=== PATIENT | female | born 1955 | race Caucasian/White ===

== ENCOUNTER 2020-01-01 12:53 | Outpatient (CLI) | payer MEDICARE, OTHER, SELFPAY ==
[2020-01-01 15:01] LABS: Basophils # 0.1 10^3/uL (0.0-0.1); Basophils % 0.8 %; Eosinophils # 0.3 10^3/uL (0.0-0.8); Eosinophils % 1.8 %; Hematocrit 43.9 % (37.0-47.0); Lymphocytes # 4.6 10^3/uL (0.8-4.8); Lymphocytes % 30.6 %; Mean Corpuscular HGB Conc 31.9 g/dL (30.0-36.0); Mean Corpuscular Hemoglobin 28.8 pg (28.0-34.0); Mean Corpuscular Volume 90.3 fL (81-99); Mean Platelet Volume 9.6 fL (7.4-10.4); Monocytes % 6.4 %; Neutrophils # 8.83 10^3/uL (1.8-7.7); Nucleated Red Blood Cells % 0 %; Platelet Count 321 10^3/cmm (130-400); Red Blood Count 4.86 10^6/uL (4.1-5.3); Red Cell Distribution Width 14.1 % (12.1-15.1)
[2020-01-01 15:30] LABS: Alanine Aminotransferase 18 U/L (0-33); Albumin Level 4.3 g/dL (3.5-5.2); Alkaline Phosphatase 54 IU/L (35-105); Anion Gap 14.3 (5-19); Aspartate Amino Transferase 20 U/L (0-32); Blood Urea Nitrogen 11 mg/dL (8-23); Calcium 9.4 mg/dL (8.5-10.5); Carbon Dioxide 25 mmol/L (22-29); Chloride 103 mmol/L (98-107); Globulin 3.6 g/dL (1.3-4.6); Glucose 105 mg/dL (65-115); Lactate Dehydrogenase 236 U/L (135-214); Osmolality Calculated 286 mOsm/kg (285-295); Potassium 4.3 mmol/L (3.5-5.1); Sodium 138 mmol/L (136-145); Total Bilirubin 0.2 mg/dL (0.15-1.2); Total Protein 7.9 g/dL (6.6-8.7)
[2020-01-01 15:48] LABS: LAB Peripheral Smear Sent for Review
[2020-01-01 16:21] LABS: Erythrocyte Sedimentation Rate 45 mm/hr (0-15)
--- NOTE | 2020-01-05 16:03 | ONC CON_ITS ---
Dr. Kahn New Patient Note Patient: Citlali Bear Unit #: [id number]: 1955 Dicatated By: Benji Kahn M.D.Date of Visit: Jan 01, 2020 Onc MED New Patient/Consult Referring Physician: LUCI FAJARDO Chief Complaint: Leukocytosis. History of Present Illness: This is a 64-year-old woman with a mild leukocytosis. This patient has multiple medical illnesses including asthma/COPD, obstructive sleep apnea, and sarcoidosis. 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 At that time she was found to have a mass within the mesentery of the small bowel and there was associated small bowel perforation. The mass was completely resected along with the involved portion of small intestine, estimated at 30 cm. Pathology showed a 14 x 8 x 6 cm mass within the mesenteric fat. It appeared to be extrinsic to the small bowel wall. It was histologically felt to be consistent with mesenteric fibromatosis. She was followed with surveillance CT scans. I had last seen her in December 2017. At that point she appeared stable clinically. Her CT scans at that time showed fatty infiltration of the liver and fat-containing umbilical and supraumbilical hernias, but there was no evidence of recurrence of the fibromatosis and no other acute findings in the chest, abdomen, or pelvis. In November 2019 she had a follow-up visit with [facility]. At that time she complained of shortness of breath and exhaustion/fatigue. She also reported having low-grade fever. At that time she also indicated that a year earlier she had been to [facility] and that her evaluation there included a PET/CT which showed an area of uptake in the right thyroid, biopsies of which were benign. The PET/CT was apparently otherwise negative. Her laboratory studies included a CBC which showed normal hemoglobin at 13.7 g with hematocrit 41.8%. The white blood cell count was elevated at 18,900. The platelet count was normal at 323,000. She is seen now in regard to the elevated white count. She says it has up and down during the past 4 years. In reviewing her records in [facility], she did have a normal white blood cell count in July 2011. She had 4 additional blood counts between March 2014 and November 2017, all of which showed mild leukocytosis ranging from 12,100-16,100 and with absolute neutrophil counts ranging from 7100-11,000. Her other blood counts had consistently been normal. Her sed rates were normal to slightly elevated. She does have multiple complaints. She says she is extremely fatigued and she has very limited activity. She is able to do some light housework, but slowly. Her ECOG score is 2. Her appetite is not very good. She had lost weight at one time, but overall she has been slowly gaining weight. She does have low-grade fever off and on, up to 100.5 degrees. She has episodes in which she says her head feels like it is on fire. She has not had as much in the way of hot flashes or night sweating. She complains that at times her vision runs together. She says her breathing is terrible. She is short of breath with any activity. She also has some cough and she occasionally brings up nasty, pasty, green or yellow stuff. She does not complain of chest pain. She does have nausea. Her bowels alternate between diarrhea and constipation, and she does have some abdominal pain. She has difficulty voiding. She says her urine tends to just trickle out, and she has to squat to pee . She tends to have incomplete bladder emptying. She says she has a really bad back problem. She also has some more generalized musculoskeletal pain, especially in her arms. She says her arms are weak. She has headaches and she complains that she is off balance. She has numbness/tingling in her hands and feet. She complains that she wants to sleep all the time. She is on CPAP. She has not had a recent titration study. Past Medical History: Her medical history includes allergic rhinitis, anemia, anxiety, asthma/COPD, atrial fibrillation, depression, fibromyalgia, hypothyroidism, mesenteric fibromatosis, obstructive sleep apnea, and sarcoidosis. Past Surgical History: Her surgical/procedural history includes cyst removal off left hand in 2017, Colonoscopy in 2011, exploratory laparotomy with resection of mesenteric mass and partial small bowel resection in 2011, mediastinoscopy in 2004, thyroidectomy in 1994, hysterectomy/bilateral salpingectomy-oophorectomy in 1992, and appendectomy in 1976. Medications: Albuterol Aerosol, solution Inhalation PRN, ALPRAZolam 1 Tablet (of 0.5 mg) Oral daily PRN, Anoro Ellipta 1 Puff(s) (of 62.5-25 mcg/inh) Aerosol Powder, Breath Activated Inhalation PRN, Cardizem CD 1 (360 mg) Capsule SR 24 HR Oral daily, Cholecalciferol 1 (95791 Units) Capsule Oral q 1 week, Diazepam 1 (10 mg) Tablet Oral t.i.d. PRN, DuoNeb 1 (0.5-2.5 (3) mg/3ml) Solution Inhalation q 6 hours PRN, Flexeril 1 (10 mg) Tablet Oral daily PRN, Flonase Suspension Nasal daily, Hydroxychloroquine Sulfate 2 Tablet (of 200 mg) Oral b.i.d., Levothyroxine Sodium 1 (75 mcg) Tablet Oral daily, Losartan Potassium 1 Tablet (of 25 mg) Oral daily, Metoprolol Tartrate 1 Tablet (of 25 mg) Oral daily, Multivital 1 Tablet Oral daily, Mupirocin 1 (2 %) Ointment Topical daily, Potassium Chloride [place] ER 2 Tablet (of 20 meq) Tablet, controlled release Oral b.i.d., Singulair 1 (10 mg) Tablet Oral daily, Spironolactone 1 (25 mg) Tablet Oral daily, Symbicort 2 puff(s) (of 160-4.5 mcg/act) Aerosol Inhalation b.i.d., Torsemide 1 Tablet (of 20 mg) Oral daily, TraMADol HCl 1 - 2 (50 mg) Tablet Oral q 6 hours PRN, Xarelto 1 Tablet (of 20 mg) Oral daily, Zaroxolyn (2.5 mg) Tablet Oral Take as Directed, Zofran Tablet Oral PRN, ZyrTEC Allergy 1 (10 mg) Capsule Oral daily Allergies: Codeine Sulfate, Keflex, and Tylenol. 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 She is a non-smoker. She has had only rare alcohol use. Family History: Both maternal and paternal grandmothers had ovarian cancer. A brother of leukemia at age 13. Another brother with heart disease/hypertension at age 35. A 51-year-old sister also has atrial fibrillation. Father with COPD at age 80. Her mother had hypertension and hypercholesterolemia and at age 82. Review Of Symptoms: Constitutional - She is extremely fatigued. She has very limited activity. Appetite is not very good, but she has been slowly gaining weight. She has low-grade fever off and on, in the range of 99-100.5 degrees. She is not having as much night sweating. ECOG is 2, Eyes - Her vision sometimes runs all together , ENMT - No hearing loss or tinnitus. She has sinus drainage. No mouth sores. No sore throat or difficulty swallowing, Hematologic/Lymphatic - She has some bruising. No other bleeding, Respiratory - She has shortness of breath, and she has some cough. No pleuritic pain or hemoptysis, Cardiovascular - No angina pain. No palpitations, Gastrointestinal - She has some nausea. No heartburn or acid reflux. She has abdominal pain, and her bowels fluctuate between diarrhea and constipation. No blood in the stool or black stools, Genitourinary (F) - She has difficulty voiding, and she sometimes has incomplete bladder emptying. No dysuria or hematuria. No urinary frequency. No urgency or incontinence, Musculoskeletal - She has a lot of pain. Her biggest pain is in her back. She also complains that her arms hurt she says her arms are weak, Integumentary - No skin rash, Neurologic - She has headache and she complains that she is off balance. She has numbness/tingling in her hands and feet, Psychiatric - She has anxiety and depression. She complains that she wants to sleep all the time. She is on CPAP at night, but she has not had any recent titration study. Vital Signs: Performed on Jan 01, 2020 13:31: 4, 54.54 (HIGH), 2.56 sq.m, 67.00 in, 95 % (LOW), 69 /min, 22 /min, 141/69 mm(hg) (HIGH), 97.2 F (LOW), and 348.2 lbs (HIGH). Physical Examination: Constitutional - She does not appear acutely ill, Eyes - Sclerae nonicteric. Conjunctivae clear, ENMT - No lesions noted in the oral cavity, Neck - No mass or thyromegaly, Hematologic/Lymphatic - There is a mildly tender submandibular node on the left versus slightly prominent submandibular gland. There is no other cervical, clavicular, or axillary adenopathy, Respiratory - Lungs sound clear, Cardiovascular - Heart rhythm is regular. There is no murmur, gallop, or rub noted, Abdomen - Distended. Liver and spleen do not appear enlarged. There is no abdominal mass or ascites noted and there is no inguinal adenopathy, Back/Spine - Mild tenderness in the mid thoracic spine, Extremities - No edema. Pedal pulses are palpable bilaterally, Integumentary - No rashes. No suspicious skin lesions noted, Neurologic - No focal neurologic deficits noted. Impression: 1. Patient with mild leukocytosis, which appears to date back to at least 2013. The cause is uncertain, but it is probably reactive given the duration and overall lack of progression. However, at this point a myeloproliferative disorder is not excluded. 2. She has multiple complaints, the most significant being extreme fatigue, shortness of breath, and back pain. 3. In 2011 she underwent exploratory laparotomy with resection of mesenteric mass and with partial small bowel resection. Pathology was consistent with mesenteric fibromatosis. During follow-up there has been no evidence of recurrence. Her other medical illnesses include: 4. Asthma/COPD. 5. Obstructive sleep apnea. 6. She has a history of sarcoidosis, treated with hydroxychloroquine. 7. History of atrial fibrillation. 8. Fibromyalgia. 9. Hypothyroidism. 10. Anxiety/depression. Plan: The laboratory findings were reviewed with the patient and we discussed the clinical implications. She will have additional laboratory studies today to include CBC, comprehensive metabolic profile, LDH level, sed rate, and CRP level. I also will request a FISH study for BCR/abl, and I will review the blood smear. In addition, she will be scheduled for a nuclear medicine bone scan. She will have further evaluation as indicated. In the meantime, I will see if I can get her scheduled for a CPAP titration study, as she is on CPAP for obstructive sleep apnea, but she still has excessive daytime somnolence and she has not had a titration study repeated since the initial diagnosis. Signed By: Benji Kahn M.D. <<Signature on File>>
[2020-01-06 18:02] LABS: P190 BCR ALB1 Not Detected; P210 BCR ALB1 Not Detected; Prior Results Not Given
== END 2020-01-01 12:54 | disposition home or self-care (01) ==
LOC: ONCMED 12:56
PROVIDERS: PCP Family Medicine; Visit Provider Internal Medicine Medical Oncology
DX: D72.829 Elevated white blood cell count, unspecified (principal); R53.83 Other fatigue; R06.02 Shortness of breath; M54.9 Dorsalgia, unspecified; R40.0 Somnolence; Z86.03 Personal history of neoplasm of uncertain behavior; J44.9 Chronic obstructive pulmonary disease, unspecified; J45.909 Unspecified asthma, uncomplicated; G47.33 Obstructive sleep apnea (adult) (pediatric); I48.91 Unspecified atrial fibrillation; M79.7 Fibromyalgia; E03.9 Hypothyroidism, unspecified; F41.8 Other specified anxiety disorders
CPT/HCPCS: 36415; 80053; 81206; 83615; 85025; 85651; 86141; 99215

== ENCOUNTER 2020-01-19 07:40 | Outpatient (CLI) | payer MEDICARE, OTHER, SELFPAY ==
--- NOTE | 2020-01-19 07:45 | NM_ITS ---
WS: [id number] NUCLEAR MEDICINE BONE SCAN Radiopharmaceutical: 25.0 Tc-99m MDP mCi IV Injection site: Right antecubital Postinjection imaging delay: 1 hr CLINICAL INFORMATION: LEUKOCYTOSIS/BACK PAIN COMPARISON: None. FINDINGS: Bone lesions: There are no osseous lesions suspicious for metastatic disease. No pathologic foci of u ptake. No abnormal foci of uptake in the mid and lower back. Soft tissue contours: Normal. Kidneys: Normal. Other findings: Degenerative type uptake right knee medial joint compartment. NM/NM bone scan whole body* [id number] IMPRESSION: 1. No evidence of osseous metastatic disease. No pathologic foci of uptake. 2. No abnormal foci of uptake in the mid and lower back.
== END 2020-01-19 07:41 | disposition home or self-care (01) ==
LOC: NM 07:41
PROVIDERS: PCP Family Medicine; Visit Provider Internal Medicine Medical Oncology
DX: D72.829 Elevated white blood cell count, unspecified (principal); M54.9 Dorsalgia, unspecified
CPT/HCPCS: 78306; A9561

== ENCOUNTER → 2022-11-13 14:01 | Outpatient (BNVA) | payer MEDICARE, OTHER, SELFPAY | PROVIDERS: PCP Family Medicine; Visit Provider Surgery | DX: M79.7 Fibromyalgia (principal); E11.9 Type 2 diabetes mellitus without complications; Z12.11 Encounter for screening for malignant neoplasm of colon | CPT/HCPCS: 99203 ==

== ENCOUNTER → 2022-11-28 11:05 | Outpatient (BNVA) | payer MEDICARE, OTHER, SELFPAY | PROVIDERS: PCP Family Medicine; Visit Provider Podiatrist Foot & Ankle Surgery | DX: L60.3 Nail dystrophy (principal); E11.42 Type 2 diabetes mellitus with diabetic polyneuropathy; M20.41 Other hammer toe(s) (acquired), right foot; M20.42 Other hammer toe(s) (acquired), left foot; M21.41 Flat foot [pes planus] (acquired), right foot; M21.42 Flat foot [pes planus] (acquired), left foot; M20.11 Hallux valgus (acquired), right foot; M20.12 Hallux valgus (acquired), left foot | CPT/HCPCS: 11721; 99204 ==

== ENCOUNTER 2023-01-04 06:18 | Day surgery (SDC) | payer MEDICARE, OTHER, SELFPAY ==
[2023-01-02 09:39] VITALS: BMI 57.9
--- OUTSIDE RECORDS SUMMARY | 2023-01-04 06:21 | XMS_ITS | Continuity of Care Document ---
Author Name Unknown Organization [facility] Address [address] [place] [address]- Care Team Providers Care Medical Care Administrator Name Role Phone Vicky Sim DO Primary Care Physician Encounter 08/10/22 - 08/11/22 [facility] [address] [place] [address]- [place] Encounter Diagnosis Body mass index [BMI] 50.0-59.9, adult(Discharge Diagnosis) - 08/10/22 Morbid (severe) obesity due to excess calories(Discharge Diagnosis) - 08/10/22 Multinodular goiter(Discharge Diagnosis) - 08/10/22 Type 2 diabetes mellitus(Discharge Diagnosis) - 08/10/22 Hypertension(Discharge Diagnosis) - 08/10/22 Post-surgical hypothyroidism(Discharge Diagnosis) - 08/10/22 Mixed hyperlipidemia(Discharge Diagnosis) - 08/10/22 Toe deformity(Discharge Diagnosis) - 08/10/22 Encounter for screening for other disorder(Discharge Diagnosis) - 08/10/22 Other specified health status(Discharge Diagnosis) - 08/10/22 Attending Physician: Ivan Alvarez MD, Mine Allergies, Adverse Reactions, Alerts Substance Reaction Severity Status codeine anaphylactic reaction Severe Active Tylenol confusion Moderate Active Keflex confusion Moderate Active Assessment and Plan Extracted from: Title:Ambulatory Consult Note Author:Raymundo Sun DO Date:08/10/22 1.??Multinodular goiter(Nont oxic multinodular goiter: E04.2) She has a history??of multinodular??goiter.?? She??has had a biopsy??of??a right??inferior??thyroid nodule??which??was benign??in the past??in 2014.?? On??her last ultrasound??in 2017,??this nodule was stable.?? She reports??she has??had 5 biopsies at [facility] since??I last saw??her.?? I have recommend that??she get a copy??of these biopsy??records??for us to review.?? In the meantime, recommend repeat ultrasound. ?? Ultrasound??today shows??her thyroid nodules??are mostly stable.?? She has had slow??growth of 2 nodules.?? The largest??of these 2 that??her enlarging is mixed??cystic/solid in the isthmus.?? Her largest??nodule overall is actually??smaller??in size??compared to last ultrasound.?? It is down??to 1.7 cm.?? And this is the nodule??that??was benign??on fine-needle??aspiration in the past. ?? At??this time I recommend repeat ultrasound??again??in??1 year.?? Can reassess??her thyroid nodules??then.?? Since last ultrasound though??in 2017 I do not??see??significant??changes??to suggest??she needs a repeat biopsy??at??this time given??the previous benign??biopsies.? Ordered: ALT/SGPT BMP Diabetic Foot Exam Hgb A1C Lipid Panel with calculated LDL Microalbumin Creatinine Ratio Random Urine Office Consult Level 4 [id number] Retinal Imaging w Interpretation [id number] Return to Clinic - Lab Return to Clinic with CHRISTIE Return to Clinic with US TSH US Thyroid US Thyroid ?? 2.??Type 2 diabetes mellitus(Type 2 diabetes mellitus without complications: E11.9) We discussed this.?? She has been prescribed Trulicity.?? Advised her to go ahead??and start this.?? I??did discuss with??her though if??this becomes too expensive with??her insurance??we??could consider??changing??to Soliqua.?? She is also taking??glipizide.?? Can continue this??for now.?? I recommend A1c with return. Ordered: ALT/SGPT BMP Diabetic Foot Exam Hgb A1C Lipid Panel with calculated LDL Microalbumin Creatinine Ratio Random Urine Office Consult Level 4 [id number] Referral Order Retinal Imaging w Interpretation [id number] Return to Clinic - Lab Return to Clinic with US TSH ?? 3.??Mixed hyperlipidemia(Mixed hyperlipidemia: E78.2) Recommend??add rosuvastatin??5 mg a day.?? We discussed now that??she??has diabetes the??LDL goal is less than 100 in the medications??help to reduce??inflammation in the arteries.?? Lipids with return. Ordered: ALT/SGPT BMP Diabetic Foot Exam Hgb A1C Lipid Panel with calculated LDL Microalbumin Creatinine Ratio Random Urine Office Consult Level 4 [id number] Retinal Imaging w Interpretation [id number] Return to Clinic - Lab Return to Clinic with US TSH ?? 4.??Hypertension(Essential (primary) hypertension: I10) Blood pressure slightly??increased today.?? Will recheck??this return.?? She is on losartan and spironolactone. Ordered: ALT/SGPT BMP Diabetic Foot Exam Hgb A1C Lipid Panel with calculated LDL Microalbumin Creatinine Ratio Random Urine Office Consult Level 4 [id number] Retinal Imaging w Interpretation [id number] Return to Clinic - Lab Return to Clinic with US TSH ?? 5.??Post-surgical hypothyroidism(Postprocedural hypothyroidism: E89.0) Continue??levothyroxine.?? TSH with return.?? Her most??recent??TSH locally??was in the normal range. Ordered: ALT/SGPT BMP Diabetic Foot Exam Hgb A1C Lipid Panel with calculated LDL Microalbumin Creatinine Ratio Random Urine Office Consult Level 4 [id number] Retinal Imaging w Interpretation [id number] Return to Clinic - Lab Return to Clinic with US TSH ?? 6.??Toe deformity(Acquired deformities of toe(s), unspecified, unspecified foot: M20.60) Recommend she see??Podiatry??to consider diabetic shoes??and/or inserts. ?? Available results were discussed with the patient. Pending results will be communicated to the patient once available.?? Problem list reviewed and updated as needed.?? Thank you for allowing me to participate in the care of this patient.?? If I may of further assistance, please contact me. ? cc Dr. Sim ?? Discussed the plan with discussion on the treatment including side effects possible, expected response and the needs of when to call back.?? Medications reviewed. Assessed patient understanding of medications and answered all questions. Assessed patient response to medications.?? Aware how to take medication. If any questions, advised??to call. ? Ordered: ALT/SGPT BMP Diabetic Foot Exam Hgb A1C Lipid Panel with calculated LDL Microalbumin Creatinine Ratio Random Urine Office Consult Level 4 [id number] Referral Order Retinal Imaging w Interpretation [id number] Return to Clinic - Lab Return to Clinic with US TSH ?? Body mass index [BMI] 50.0-59.9, adult(Body mass index [BMI] 50.0-59.9, adult: Z68.43) ?? Morbid (severe) obesity due to excess calories(Morbid (severe) obesity due to excess calories: E66.01) ?? Orders: dulaglutide, 0.75 mg, SubQ, QW (once a week), # 4 EA, Refill(s) 0, other glipiZIDE, 5 mg = 1 tab, By mouth, Daily, # 30 tab, Refill(s) 0, other rosuvastatin, 5 mg = 1 tab, By mouth, Daily, # 100 tab, Refill(s) 3, Pharmacy: [facility][id number][id number], 1 tab By mouth Daily, 167.27, 08/10/22 8:03:00 CDT, kg, Weight Future Appointments Appointment Date:11/09/2022 11:15:00 AM Scheduled Provider:Macey Becker Location:[facility] Appointment Type:Established Patient Appointment Date:08/13/2023 02:00:00 PM Scheduled Provider:Raymundo Sun DO Location:[facility] Appointment Type:Ultrasound 30 Future Scheduled Tests Laboratory* Lipid Panel with calculated LDL 11/09/22 * Microalbumin Creatinine Ratio Random Urine 11/09/22 * ALT/SGPT 11/09/22 * Hgb A1C 11/09/22 * TSH 11/09/22 * BMP 11/09/22 Radiology* US Thyroid 08/11/23 Medications Aldactone 25 mg oral tablet 25 mg = 1 tab, By mouth, Daily, # 30 tab, Refill(s) 0 Start Date: 01/01/19 Status: Ordered ALPRAZolam 1 mg, By mouth, TID, PRN Anxiety, 30 tab, 0, Substitution Permitted Start Date: 08/10/22 Status: Ordered B-Complex with B-12 oral tablet 1 tab, By mouth, Daily, [id number]-tofpvga, # 100 tab, Refill(s) 0, Do Not Route, other Start Date: 11/15/17 Status: Ordered CPAP 11 cm H2O CPAP 11 cm H2O, CPAP 11 cm H2O, Both Nostrils, at bedtime, 06/2015. SHERWIN Chan, # 1 EA, Refills(s) 0, Do Not Route, other, Supply Start Date: 11/15/17 Status: Ordered DilTIAZem (Eqv-Tiazac) 360 mg/24 hours oral capsule, extended release = 1 cap, By mouth, Daily, # 90 cap, Refill(s) 3, Pharmacy: [id number], [id number], Take 1 capsule by mouth once daily, 158.18, 12/22/20 14:57:00 CDT, kg, Weight Start Date: 12/29/20 Status: Ordered DuoNeb inhalation solution 3 mL, NEB, QID, as needed for shortness of breath or wheezing, Refill(s) 0 Start Date: 04/04/17 Status: Ordered Flonase 50 mcg/inh nasal spray 2 spray, Both Nostrils, Daily, # 16 g, Refill(s) 0 Start Date: 05/19/15 Status: Ordered Gentle Laxative 5 mg, By mouth, Daily, Refill(s) 0 Start Date: 05/19/15 Status: Ordered glipiZIDE 5 mg oral tablet 5 mg = 1 tab, By mouth, Daily, # 30 tab, Refill(s) 0, other Start Date: 08/10/22 Status: Ordered hydroxychloroquine 200 mg, By mouth, BID, Refill(s) 0 Start Date: 05/19/15 Status: Ordered levothyroxine 75 mcg (0.075 mg) oral tablet 75 mcg = 1 tab, By mouth, Daily, # 90 tab, Refill(s) 0, Pharmacy: [id number], [id number], TAB, Patient needs an appt for further refills, 1 tab By mouth Daily Start Date: 03/19/18 Status: Ordered losartan 25 mg oral tablet = 1 tab, By mouth, Daily, LAST SEEN 12/22/20. MUST BE SEEN TO REFILL AGAIN., # 90 tab, Refill(s) 0, Pharmacy: [facility] #[id number], [id number], 1 tab By mouth Daily,Instr:LAST SEEN 12/22/20. MUST BE SEEN TO REFILL AGAIN.,... Start Date: 06/11/22 Status: Ordered Metoprolol Tartrate 25 mg oral tablet See Instructions, take 2 tabs AM and one tab PM, # 60 tab, Refill(s) 4, Pharmacy: [facility], [id number], Instructions Replace Required Details Start Date: 09/13/17 Status: Ordered Multivitamin Daily, Refill(s) 0 Start Date: 04/04/17 Status: Ordered predniSONE 20 mg oral tablet 20 mg = 1 tab, By mouth, Daily, Refill(s) 0 Start Date: 12/22/20 Status: Ordered ProAir HFA 108 (90 mcg base)/inh inhalation aerosol 1 puff, Inhalation, Q6H, for wheezing, # 8.5 g, Refill(s) 0 Start Date: 05/19/15 Status: Ordered rosuvastatin 5 mg oral tablet 5 mg = 1 tab, By mouth, Daily, # 100 tab, Refill(s) 3, Pharmacy: [facility] #[id number], [facility]_ID-[id number], 1 tab By mouth Daily, 167.27, 08/10/22 8:03:00 CDT, kg, Weight Start Date: 08/10/22 Status: Ordered Singulair 10 mg oral tablet 10 mg = 1 tab, By mouth, QPM (every evening), # 30 tab, Refill(s) 0 Start Date: 05/19/15 Status: Ordered traMADol 50 mg oral tablet See Instructions, 1 tab By mouth in am and 2 tabs in pm, Refill(s) 0, Instructions Replace RequiredDetails Start Date: 05/19/15 Status: Ordered Trulicity Pen 0.75 mg/0.5 mL subcutaneous solution 0.75 mg, SubQ, QW (once a week), # 4 EA, Refill(s) 0, other Start Date: 08/10/22 Status: Ordered Vitamin C 500 mg oral tablet 1,000 mg = 2 tab, By mouth, Daily, Refill(s) 0 Start Date: 04/04/17 Status: Ordered Vitamin D2 50,000 intl units (1.25 mg) oral capsule 50,000 IntUnit = 1 cap, By mouth, QW (once a week), Refill(s) 0 Start Date: 04/04/17 Status: Ordered Xarelto 20 mg oral tablet See Instructions, TAKE 1 TABLET BY MOUTH ONCE DAILY IN THE EVENING. NEEDS FOLLOW UP APPOINTMENT, # 30 tab, Refill(s) 1, Pharmacy: [facility] #[id number], [id number], Instructions Replace Required Details, TAKE 1 TABL... Start Date: 06/27/21 Status: Ordered ZyrTEC 10 mg oral tablet 10 mg = 1 tab, By mouth, Daily, Refill(s) 0 Start Date: 04/04/17 Status: Ordered Problem List Condition Confirmation Course Effective Dates Status H ealth Status Informant Mesenteric fibromatosis Confirmed Active Anticoagulated Confirmed Active Chronic low back pain 1 Confirmed Active Asthma with COPD Confirmed Active Depression Confirmed Active Fibromyalgia Confirmed Active Atrial fibrillation, currently in sinus rhythm Confirmed Active Hypersomnia Confirmed Active Hypertension 2 Confirmed Active Meralgia paresthetica of left side Confirmed Active Hyperlipidemia Confirmed Active Hyperlipidemia Confirmed Active Abnormal MRI of head Confirmed Active Multinodular goiter Confirmed Active MELBA on CPAP Confirmed Active Paroxysmal atrial fibrillation 3, 4, 5 Confirmed Active Post-surgical hypothyroidism Confirmed Active Sarcoidosis 6 Confirmed Active Thyroid nodule Confirmed Active Type 2 diabetes mellitus Confirmed Active 1Prior MRI 11/12/2013 showed mild multilevel degenerative disc disease in the lumbar spine without central canal stenosis or neuroforaminal narrowing. 2With orthostasis 3Called in 04/2017 with recurrences. 4remote hx of afib reported. a. event monitor. 11/2013 neg. [id number] 6Pulmonary 2001 Procedures Procedure Date Related Diagnosis Body Site Status Exploratory Laparotomy 2011 Completed partial thyroidectomy 04/16/93 Com pleted Hysterectomy 04/16/92 Completed Mediastinoscopy 2 Complet ed 1Rare cancer, done at [facility] 2for Sacrcoidosis Results Radiology Reports * Exam Date Time Procedure Performing Provider Status 08/10/22 8:20 AM US Thyroid Raymundo Sun DO (Verified) Notes: (US Thyroid) Reason For Exam: Multinodular goiter US Thyroid READING LOCATION: [facility] [address] [place] [address] [address] [place] [address] CLINICAL HISTORY: She has a history of multinodular goiter .Right inferior thyroid nodule was benign at this institution in 2013. She reports she had 5 nodules biopsied at [facility] which were benign about 4 years ago. Diagnosis Codes: Thyroid nodules, E66.01 Morbid (severe) obesity due to excess calories Comparison: US thyroid 04/12/2017 Thyroid(or neck) ultrasonography limited to the thyroid gland and anterior neck was personally performed in real-time using a linear probe in both transverse and longitudinal planes.? Measurements are listed as Length x and depth (AP) x width (transverse). Doppler was used as well. Right Lobe Size: Length 5.16 (cm)=cm Transverse (width) 2.47 (cm)=cm AP (depth) 1.97 (cm)=cm Right thyroid volume: 12.04 (ml)ml Appearance: Right lobe is enlarged. It is hyperechoic and heterogenous. With nodules. Nodules: Right thyroid nodule1 superior: 1.1 (cm) x 0.9 (cm) x 1.0 (cm) Previously 1.0 x 0.9 x 0.9 cm. Hypoechoic mixed cystic solid nodule. Margins defined, smooth. Grade 2 vascularity. Calcifications noted as microcalcifications in one area. Right thyroid nodule 2 mid: 1.0 (cm) x 0.5 (cm) x 0.7 (cm) Previously not measured. Hypoechoic, solid nodule. Margins defined, smooth. Grade 2 vascularity. Calcifications none. Right thyroid nodule 3 mid posterior: 1.2 (cm) x 1.0 (cm) x 1.4 (cm) Previously not measured. Hypoechoic, solid nodule. Margins ill defined. Grade 1 vascularity. Calcifications None. Right thyroid nodule 4 inferior: 1.7 (cm) x 1.3 (cm) x 1.3 (cm) Previously 2.1 x 1.3 x 1.5 cm. Hypoechoic heterogenous nodule. Margins defined irregular. Grade 2 vascularity. Calcifications noted centrally as macro calcifications. This was benign on FNA in 2013. Right neck: No significant cervical lymphadenopathy noted on routine views of the neck. Left Lobe is surgically absent without masses in the left thyroid bed. Left neck: No significant cervical lymphadenopathy noted on routine views of the neck. Isthmus: Size: AP (depth) 0.77 (cm)=cm Appearance: With a nodule. THis is 1.6 x 0.8 x 1.1 cm. Previously 1.1 x 0.8 x 1.0 cm. Hypoechoic mixed cystic solid nodule. Margins defined. Grade 2 vascularity. Calcifications none. There are some areas that may represent colloid specks. . IMPRESSION: Multinodular goiter with nodules that are only increased in size slightly compared to 6years ago. I do not see high risk features combined with significant growth to suggest thyroid cancer at this time. I do recommend getting a copy of [facility] records from [facility] for review. Recommend repeatUS in 1 year. Electronically signed by: Dr Raymundo 08/10/2022 9:48 AM Raymundo Sun DO Signed 08/10/22 09:48:09 (Electronic Signature) Coo LUIS Technologist LUIS REPORT Vital Signs Most recent to oldest [Reference Range]: 1 Blood Pressure 144/74 (08/10/22 8:01 AM) Height (inches) (Clinical) 67 in (08/10/22 8:01 AM) Weight (kg) (Clinical) 167.27 kg (08/10/22 8:01 AM) BMI (Clinical) 57.6 kg/m2 (08/10/22 8:01 AM) Social History Social History Type Response Smoking Status Never smoker; Smokel ess tobacco use: Never; Has the patient smoked in the last 365 days, even once? No entered on: 08/10/22 Sex Female Goals continuing weight loss Start Date:12/28/15 End Da te: Status:Met Progression:Not Met Endocrinology Outpatient Note * Raymundo Sun DO: PERFORM Event Display: Endocrinology Office/Clinic Note Authored Date: [id number] Chief Complaint Fast Track- thyroid General Information Nurse Intake General Information Physicians and Specialties: Dr. Vicky Sim - ??PCP ([place], [place])Dr. Olivas-CardiologistDrJustina Sun-EndocrinologistDrJustina Pantoja ??Jasmyn (Neurologist)-Oncologist (08/10/22) Information Given By: Patient (08/10/22) Pain Information Nurse Intake Pain Information?? History of Present Illness SHe presents in consultation from Dr. Sim for thyroid nodules.?? I reviewed her records. I lastsaw her in 2017 for thyroid nodules. SHe has a history of a left hemithyroidectomy and known nodules right lobe including an over 2 cm nodule that was benign on FNA in 2013.?? Her last US in our system showed her thyroid nodules were stable in 2017.?? She was to return in a year but did not come back.?? She has a history of hypothyroidism and is on levothyroxine 75 mcg a day. On outside record review she had ,abs 06-23-22. TSH 1.83 LDL 157. Cr 0.78 NA 139 K 3.6 A1c 7% ?? SHe reports that she had moved to [place].?? SHe reports that she then moved back. Her PCP now is with [facility]. She the was sent to [facility] endocrine.?? SHe reports that she then asked to change back to [facility].? She reports that she was seeing [facility] endocrinology for her thyroid.?? SHe was seeing Dr. Sierra.?? She reports that she had an US at [facility] and was told that she had a nodule that needed a biopsy.? 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 SHe is able to get to her US report from [facility] on her phone. I reviewed this.?? 04/27/22 Right lobe with 3 nodujles.?? Mid 1.2 cm nodule, previously 1.3 cm.?? Right nodule 1 1.4 cm PREviously 1.1 cm, right nodule 3 0.9 cm previously 0.8 cm. FNA was recommended.? She reports she has some dysphagia at times.?? This is something that is happening.?? She reports she has not had a swallowing study.? She has been diagnosed with diabetes in Mar.?? She reports that she used to have hypoglycemia.?? SHe now has diabetes.?? SHe is on glipizide.?? She was going to start Ozempic but it was too expensive.?? SHe was given Trulicity.?? She did not start this. She has a problem with her stomach and diarrhea.?? SHe gets sick anyway.?? She is not on metformin due to diarrhea. BG are now running 99-106.?? Maybe 121 if she cheats the night before.?? SHe has the Trulicity at home but she has not started it.? She?? is on fdc prednisone. Told Sarcoid but could have amyloidosis.? She does not take a cholesterol agent.?? Review of Systems Pt denies chest pain, , nausea or vomiting.??She chronically has shortness of breath.?? She had Covid in Apr 2021. Has has shortness of breath related to this.?? Covid was not severe enough to be hospitalized. She was vaccinated.?? See HPI. All other ROS reviewed as negative or not pertinent. Physical Exam Vitals & Measurements HR:??66?? BP:??144/74?? SpO2:??97%?? WT:??167.27??kg?? WT:??368??lb?? GENERAL APPEARANCE:?? In no acute distress.?? Alert & oriented.?? Behavior and affect appropriate to situation. SKIN:?? Warm and dry.?Skin turgor normal for age. HEENT:?? Eyes: PERRLA.?? EOM intact.?? No icterus.?? No proptosis. OP:??Lips??moist??Good phonation THYROID:?? Thyroid not enlarged and without nodularity.?? No anterior neck or supraclavicular lymphadenopathy.?? Neck Supple.?? Biceps DTR +2.?? No tremor CARDIOVASCULAR:?? Heart:?? RRR without murmur.?? No pedal edema.? CHEST:?? Respirations even and unlabored.?? Lungs clear to auscultation.?? No rhonchi.?? No crackles.?? No wheezing. ABDOMEN:?? Normoactive bowel sounds. Soft; no hepatosplenomegaly or palpable masses.?? No tenderness to palpation. MUSCULOSKELETAL:?? Ambulates??with a walker.??Well developed, well nourished.?? Foot:?? Monofilament??50%?? Visual - No callouses or open sores.?? No erythema.?? Nails well-trimmed.?? With 4th and 5th toes bilaterally turned in and deformed.?? Assessment/Plan 1.??Multinodular goiter(Nontoxic multinodular goiter: E04.2) She has a history??of multinodular??goiter.?? She??has had a biopsy??of??a right??inferior??thyroidnodule??which??was benign??in the past??in 2013.?? On??her last ultrasound??in 2017,??this nodule was stable.?? She reports??she has??had 5 biopsies at [facility] since??I last saw??her.?? I have recommend that??she get a copy??of these biopsy??records??for us to review.?? In the meantime, recommend repeat ultrasound. ?? Ultrasound??today shows??her thyroid nodules??are mostly stable.?? She has had slow??growth of 2 nodules.?? The largest??of these 2 that??her enlarging is mixed??cystic/solid in the isthmus.?? Her largest??nodule overall is actually??smaller??in size??compared to last ultrasound.?? It is down??to 1.7 cm.?? And this is the nodule??that??was benign??on fine-needle??aspiration in the past. ?? At??this time I recommend repeat ultrasound??again??in??1 year.?? Can reassess??her thyroid nodules??then.?? Since last ultrasound though??in 2017 I do not??see??significant??changes??to suggest??she needs a repeat biopsy??at??this time given??the previous benign??biopsies.? Ordered: ALT/SGPT BMP Diabetic Foot Exam Hgb A1C Lipid Panel with calculated LDL Microalbumin Creatinine Ratio Random Urine Office Consult Level 4 [id number] Retinal Imaging w Interpretation [id number] Return to Clinic - Lab Return to Clinic with CHRISTIE Return to Clinic with US TSH US Thyroid US Thyroid ?? 2.??Type 2 diabetes mellitus(Type 2 diabetes mellitus without complications: E11.9) We discussed this.?? She has been prescribed Trulicity.?? Advised her to go ahead??and start this.?? I??did discuss with??her though if??this becomes too expensive with??her insurance??we??could consider??changing??to Sol[facility]a.?? She is also taking??glipizide.?? Can continue this??for now.?? I recommend A1c with return. Ordered: ALT/SGPT BMP Diabetic Foot Exam Hgb A1C Lipid Panel with calculated LDL Microalbumin Creatinine Ratio Random Urine Office Consult Level 4 [id number] Referral Order Retinal Imaging w Interpretation [id number] Return to Clinic - Lab Return to Clinic with US TSH ?? 3.??Mixed hyperlipidemia(Mixed hyperlipidemia: E78.2) Recommend??add rosuvastatin??5 mg a day.?? We discussed now that??she??has diabetes the??LDL goal is less than 100 in the medications??help to reduce??inflammation in the arteries.?? Lipids with return. Ordered: ALT/SGPT BMP Diabetic Foot Exam Hgb A1C Lipid Panel with calculated LDL Microalbumin Creatinine Ratio Random Urine Office Consult Level 4 [id number] Retinal Imaging w Interpretation [id number] Return to Clinic - Lab Return to Clinic with US TSH ?? 4.??Hypertension(Essential (primary) hypertension: I10) Blood pressure slightly??increased today.?? Will recheck??this return.?? She is on losartan and spironolactone. Ordered: ALT/SGPT BMP Diabetic Foot Exam Hgb A1C Lipid Panel with calculated LDL Microalbumin Creatinine Ratio Random Urine Office Consult Level 4 [id number] Retinal Imaging w Interpretation [id number] Return to Clinic - Lab Return to Clinic with US TSH ?? 5.??Post-surgical hypothyroidism(Postprocedural hypothyroidism: E89.0) Continue??levothyroxine.?? TSH with return.?? Her most??recent??TSH locally??was in the normal range. Ordered: ALT/SGPT BMP Diabetic Foot Exam Hgb A1C Lipid Panel with calculated LDL Microalbumin Creatinine Ratio Random Urine Office Consult Level 4 [id number] Retinal Imaging w Interpretation [id number] Return to Clinic - Lab Return to Clinic with US TSH ?? 6.??Toe deformity(Acquired deformities of toe(s), unspecified, unspecified foot: M20.60) Recommend she see??Podiatry??to consider diabetic shoes??and/or inserts. ?? Available results were discussed with the patient. Pending results will be communicated to the patient once available.?? Problem list reviewed and updated as needed.?? Thank you for allowing me to participate in the care of this patient.?? If I may of further assistance, please contact me. ?? cc Dr. Sim ?? Discussed the plan with discussion on the treatment including side effects possible, expected response and the needs of when to call back.?? Medications reviewed. Assessed patient understanding ofmedications and answered all questions. Assessed patient response to medications.?? Aware how to take medication. If any questions, advised??to call. Ordered: ALT/SGPT BMP Diabetic Foot Exam Hgb A1C Lipid Panel with calculated LDL Microalbumin Creatinine Ratio Random Urine Office Consult Level 4 90303 Referral Order Retinal Imaging w Interpretation [id number] Return to Clinic - Lab Return to Clinic with US TSH ?? Body mass index [BMI] 50.0-59.9, adult(Body mass index [BMI] 50.0-59.9, adult: Z68.43) ?? Morbid (severe) obesity due to excess calories(Morbid (severe) obesity due to excess calories: E66.01) ?? Orders: dulaglutide, 0.75 mg, SubQ, QW (once a week), # 4 EA, Refill(s) 0, other glipiZIDE, 5 mg = 1 tab, By mouth, Daily, # 30 tab, Refill(s) 0, other rosuvastatin, 5 mg = 1 tab, By mouth, Daily, # 100 tab, Refill(s) 3, Pharmacy: [id number], 1 tab By mouth Daily, 167.27, 08/10/22 8:03:00 CDT, kg, Weight Problem List/Past Medical History Mesenteric fibromatosis: ?? Anticoagulated: ?? Chronic low back pain: ??Prior MRI 11/12/2013 showed mild multilevel degenerative disc disease in the lumbar spine without central canal stenosis or neuroforaminal narrowing. Asthma with COPD: ?? Depression: ?? Fibromyalgia: ?? Atrial fibrillation, currently in sinus rhythm: ?? Hypersomnia: ?? Hypertension: ??With orthostasis Meralgia paresthetica of left side: ?? Hyperlipidemia: ?? Hyperlipidemia: ?? Abnormal MRI of head: ?? Multinodular goiter: ?? MELBA on CPAP: ?? Paroxysmal atrial fibrillation: ??Called in 04/2017 with recurrences. Post-surgical hypothyroidism: ?? Sarcoidosis: ??Pulmonary 2002 Thyroid nodule: ?? Type 2 diabetes mellitus: ?? Procedure/Surgical History ???Exploratory Laparotomy (2011)???partial thyroidectomy (04/16/1993)???Hysterectomy (04/16/1992)???Mediastinoscopy Medications Home Medications (24) Active Aldactone 25 mg oral tablet??25 mg = 1 tab,Start_date: 01/01/19,Refills: 0, By mouth, Daily ALPRAZolam??1 mg,Start_date: 08/10/22,Refills: 0, PRN, By mouth, TID B-Complex with B-12 oral tablet??1 tab,Start_date: 11/15/17,Refills: 0, By mouth, Daily CPAP 11 cm H2O??CPAP 11 cm H2O:06/2015. [place],Start_date: 11/15/17,Refills: 0, Both Nostrils, at bedtime DilTIAZem (Eqv-Tiazac) 360 mg/24 hours oral capsule, extended release??1 cap,Start_date: ,Refills: 3, By mouth, Daily DuoNeb inhalation solution??3 mL,Start_date: 04/04/17,Refills: 0, PRN, NEB, QID Flonase 50 mcg/inh nasal spray??2 spray,Start_date: 05/19/15,Refills: 0, Both Nostrils, Daily Gentle Laxative??5 mg,Start_date: 05/19/15,Refills: 0, By mouth, Daily glipiZIDE 5 mg oral tablet??5 mg = 1 tab,Start_date: 08/10/22,Refills: 0, By mouth, Daily hydroxychloroquine??200 mg,Start_date: 05/19/15,Refills: 0, By mouth, BID levothyroxine 75 mcg (0.075 mg) oral tablet??75 mcg = 1 tab,Start_date: 03/19/18,Refills: 0, By mouth, Daily losartan 25 mg oral tablet??1 tab,Start_date: 06/11/22,Refills: 0, By mouth, Daily Metoprolol Tartrate 25 mg oral tablet??See Instructions:take 2 tabs AM and one tab PM,Start_date: 09/13/17,Refills: 4 Multivitamin??, Daily predniSONE 20 mg oral tablet??20 mg = 1 tab,Start_date: 12/22/20,Refills: 0, By mouth, Daily ProAir HFA 108 (90 mcg base)/inh inhalation aerosol??1 puff,Start_date: 05/19/15,Refills: 0, PRN, Inhalation, Q6H rosuvastatin 5 mg oral tablet??5 mg = 1 tab,Start_date: 08/10/22,Refills: 3, By mouth, Daily Singulair 10 mg oral tablet??10 mg = 1 tab,Start_date: 05/19/15,Refills: 0, By mouth, QPM (every evening) traMADol 50 mg oral tablet??See Instructions:1 tab By mouth in am and 2 tabs in pm,Start_date: 05/19/15,Refills: 0 Trulicity Pen 0.75 mg/0.5 mL subcutaneous solution??0.75 mg,Start_date: 08/10/22,Refills: 0, SubQ, QW (once a week) Vitamin C 500 mg oral tablet??1,000 mg = 2 tab,Start_date: 04/04/17,Refills: 0, By mouth, Daily Vitamin D2 50,000 intl units (1.25 mg) oral capsule??50,000 IntUnit = 1 cap,Start_date: 04/04/17,Refills: 0, By mouth, QW (once a week) Xarelto 20 mg oral tablet??See Instructions:TAKE 1 TABLET BY MOUTH ONCE DAILY IN THE EVENING. NEEDSFOLLOW UP APPOINTMENT,Start_date: 06/27/21,Refills: 1 ZyrTEC 10 mg oral tablet??10 mg = 1 tab,Start_date: 04/04/17,Refills: 0, By mouth, Daily Medication reconciliation completed on this patient today Allergies codeine??(anaphylactic reaction) Keflex??(confusion) Tylenol??(confusion) Social History Activities of Daily Living Bed mobility: Independent. Feeding: Independent. Dressing: Independent. Ambulation: Independent. Toileting: Independent. Bathing: Independent. Transfer: Independent. Continence: Independent. Grooming: Independent. Communications: Independent. Alcohol Current, 1-2 times per year Employment/School Highest education level: Some college. Status: On Disability. Exercise Frequency: None. Home/Environment Marital status . 2 sons children. Seatbelt use: Always. Instrumental Activities of Daily Living Writing: Independent. Reading: Independent. Cooking: Independent. Cleaning: Independent. Shopping: Independent. Doing laundry: Independent. Climbing stairs: Independent. Finances Independent. Nutrition/Health Type of diet: No Diet Restrictions. Caffeine intake amount: Denies. Substance Abuse Denies Tobacco Smoking Status: Never smoker. Smokeless tobacco use: Never. Has the patient smoked in the last 365 days, even once? No. Family History AIDS: BROTHER. Anxiety: FATHER, BROTHER and CHILD. Diabetes mellitus: PGM. Heart attack: BROTHER. Heart disease: MOTHER, BROTHER and MGF. Hypertension: MOTHER, FATHER, SISTER and BROTHER. Leukemia: BROTHER. Leukemia.....: BROTHER. Ovarian cancer.: MGM and PGM. Diagnostic Results ?? Reason For Exam Thyroid nodule, Post-surgical hypothyroidism ?? US Thyroid READING LOCATION: [facility] [address] [place] [address], [address] [place] [address] Phone: ?Fax: ? CLINICAL HISTORY: Ms. Bear has a history of multinodular goiter. ??She has had left hemithyroidectomy. She had a right inferior thyroid nodule that was benign on [facility] in 2013. She was told in [place] that she may need to have a completion thyroidectomy. ??SHe has not felt changes in her neck. She did not have a repeat biopsy. ?? Diagnosis Codes: Z68.42 Body mass index (BMI) 45.0-49.9, adult, ??E04.1 Nontoxic single thyroid nodule ?? Comparison: US thyroid 9-3-15 ?? Thyroid(or neck) ultrasonography limited to the thyroid gland and anterior neck was personally performed in real-time using a linear probe in both transverse and longitudinal planes.? Measurements are listed as Length x and depth (AP) x width (transverse). ??Doppler was used as well. ?? Right Lobe Size: Length ? 4.81=cm Transverse (width) 2.80 =cm AP (depth) ?1.39=cm ?? Appearance: RIght lobe is slightly enlarged. ??It is hyperechoic and heterogenous. With multiple nodules in the right lobe. Nodules: Right superior: ??1.0 x 0.9 x 0.9 cm. ??Previously: ??1.0 x 0.7 x 0.9 cm ?? Isoechoic, solid, part cystic nodule. ??Margins fairly well defined. ??Grade II vascularity. ??Calcifications none. Right mid: ??0.7 x 0.6 x 0.5 cm. ??Previously: ??0.8 x 0.7 x 0.7 cm ?? Hypoechoic cystic nodule. ??Margins smooth. ??Grade I vascularity. ??Calcifications none. Right inferior: ??2.1 x 1.3 x 1.5 cm. ??Previously: ??2.2 x 1.3 x 1.6 cm ?? Isoechoic, mixed cysticsolid nodule. ??Margins fairly well defined. ??Grade II vascularity. ??Calcifications with linear calcifications centrally. This was benign on [facility] in 2013. ??. ?? Left Lobe is surgically absent without masses in the left thyroid bed. ?? Isthmus: Size: AP (depth) ?0.37=cm Appearance: WIth a nodule ??1.1 x 0.8 x 1.0 cm. ??Previously: ??0.9 x 0.8 x 1.2 cm ?? Iso, to hypoechoic mixed cystic/solid nodule. ??Margins smooth. ??Grade I vascularity. ??Calcifications none. ?? IMPRESSION: STable appearing multinodular goiter. She has had a biopsy of her dominant nodule rightlobe of the thyroid in 2013 which was benign. This nodule if anything is smaller in size. Recommendobservation. Consider repeat US In 3-5 years. ??Her other smaller nodules are stable in size. [1] Other PHQ?? 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 She reports she had 5 nodules biopsied at [facility] which were benign about 4 years ago. Diagnosis Codes: Thyroid nodules, E66.01 Morbid (severe) obesity due to excess calories Comparison: US thyroid 04/12/2017 Thyroid(or neck) ultrasonography limited to the thyroid gland and anterior neck was personally performed in real-time using a linear probe in both transverse and longitudinal planes.? Measurements are listed as Length x and depth (AP) x width (transverse). Doppler was used as well. Right Lobe Size: Length 5.16 (cm)=cm Transverse (width) 2.47 (cm)=cm AP (depth) 1.97 (cm)=cm Right thyroid volume: 12.04 (ml)ml Appearance: Right lobe is enlarged. It is hyperechoic and heterogenous. With nodules. Nodules: Right thyroid nodule1 superior: 1.1 (cm) x 0.9 (cm) x 1.0 (cm) Previously 1.0 x 0.9 x 0.9 cm. Hypoechoic mixed cystic solid nodule. Margins defined, smooth. Grade 2 vascularity. Calcifications noted as microcalcifications in one area. Right thyroid nodule 2 mid: 1.0 (cm) x 0.5 (cm) x 0.7 (cm) Previously not measured. Hypoechoic, solid nodule. Margins defined, smooth. Grade 2 vascularity. Calcifications none. Right thyroid nodule 3 mid posterior: 1.2 (cm) x 1.0 (cm) x 1.4 (cm) Previously not measured. Hypoechoic, solid nodule. Margins ill defined. Grade 1 vascularity. Calcifications None. Right thyroid nodule 4 inferior: 1.7 (cm) x 1.3 (cm) x 1.3 (cm) Previously 2.1 x 1.3 x 1.5 cm. Hypoechoic heterogenous nodule. Margins defined irregular. Grade 2 vascularity. Calcifications noted centrally as macro calcifications. This was benign on FNA in 2013. Right neck: No significant cervical lymphadenopathy noted on routine views of the neck. Left Lobe is surgically absent without masses in the left thyroid bed. Left neck: No significant cervical lymphadenopathy noted on routine views of the neck. Isthmus: Size: AP (depth) 0.77 (cm)=cm Appearance: With a nodule. THis is 1.6 x 0.8 x 1.1 cm. Previously 1.1 x 0.8 x 1.0 cm. Hypoechoic mixed cystic solid nodule. Margins defined. Grade 2 vascularity. Calcifications none. There are some areas that may represent colloid specks. . IMPRESSION: Multinodular goiter with nodules that are only increased in size slightly compared to 6years ago. I do not see high risk features combined with significant growth to suggest thyroid cancer at this time. I do recommend getting a copy of [facility] records from [facility] for review. Recommend repeatUS in 1 year. Electronically signed by: Dr Raymundo 08/10/2022 9:48 AM Raymundo Sun DO Signed 08/10/22 09:48:09 (Electronic Signature) Coo JLYLA Technologist LUIS Note * Raymundo Sun DO: PERFORM, TRANSCRIBE, VERIFY, VERIFY Event Display: Report Authored Date: [id number] Patient Care team information Care Team Personnel Name: Vicky Sim DO Position: 2 Restricted Providers Member Role: Primary Care Physician Address: Address: [address] [place] [address] [place] Care Team Related Persons Name: AUNG SINGH Address: home [address], [place] [id number] Address: mailing [address], [place] [id number]
--- NOTE | 2023-01-04 06:32 | W.PM.OPSFHP ---
Same Day Surgery H&P Indication for Procedure/HPI DATE OF PROCEDURE: January 04, 2023 CHIEF COMPLAINT/INDICATIONFOR SURGICAL PROCEDURE: need for screening colonoscopy PREOP DIAGNOSIS: Screening colon cancer PLANNED PROCEDURE: Operation Date: 01/04/23 07:20 Proposed Procedures p Colonoscopy 13945,Z12.11(Not Applicable) - Hector Kim MD Medications/Allergies* Home Medications Medication Instructions Recorded Confirmed Type albuterol sulfate 2.5 mg/3 mL 1.25 mg inhalation ONCE PRN 11/13/22 01/02/23 History (0.083 %) solution for nebulization Wheezing alprazolam 0.5 mg tablet 0.5 mg PO BID PRN Anxiety 11/13/22 01/02/23 History bumetanide 0.5 mg tablet 0.5 mg PO DAILY 11/13/22 01/02/23 History cyclobenzaprine 5 mg tablet 5 mg PO PRN PRN Pain 11/13/22 01/02/23 History diazepam 10 mg tablet 5 mg PO BID PRN Anxiety 11/13/22 01/02/23 History diltiazem HCl 360 mg capsule,24 360 mg PO DAILY 11/13/22 01/02/23 History hr,extended release ergocalciferol (vitamin D2) 1,250 1,250 mcg PO DAILY 11/13/22 01/02/23 History mcg (50,000 unit) capsule fluticasone propionate 50 2 spray intranasal BID PRN Wheezing 11/13/22 01/02/23 History mcg/actuation nasal spray,suspension gabapentin 100 mg capsule 100 mg PO ONCE PRN Pain 11/13/22 01/02/23 History glipizide 2.5 mg tablet, extended 2.5 mg PO DAILY 11/13/22 01/02/23 History release 24 hr levothyroxine 75 mcg tablet 75 mcg PO DAILY 11/13/22 01/02/23 History losartan 25 mg tablet 25 mg PO DAILY 11/13/22 01/02/23 History metoprolol tartrate 50 mg tablet 50 mg PO BID 11/13/22 01/02/23 History montelukast 10 mg tablet 10 mg PO DAILY 11/13/22 01/02/23 History ondansetron 4 mg disintegrating 4 mg PO Q6H PRN nausea and vomiting 11/13/22 01/02/23 History tablet prednisone 10 mg tablet 40 mg PO DAILY 11/13/22 01/02/23 History rivaroxaban 20 mg tablet (Xarelto) 20 mg PO DAILY 11/13/22 01/02/23 History rosuvastatin 5 mg tablet 5 mg PO DAILY 11/13/22 01/02/23 History spironolactone 25 mg tablet 25 mg PO DAILY 11/13/22 01/02/23 History tramadol 50 mg tablet 25 mg PO BID PRN pain 11/13/22 01/02/23 History cetirizine 10 mg tablet (Zyrtec) 10 mg PO DAILY 12/05/22 01/02/23 History budesonide-formoterol HFA 160 2 puff inhalation BID PRN 01/02/23 01/02/23 History mcg-4.5 mcg/actuation aerosol Shortness Of Breath inhaler (Symbicort) Allergies/Adverse Reactions Allergy/AdvReac Type Severity Reaction Status Date / Time acetaminophen [From Tylenol] Allergy Unknown Verified 11/28/22 11:13 cephalexin [From Keflex] Allergy Unknown Verified 11/28/22 11:13 codeine Allergy Unknown Verified 11/28/22 11:13 Pertinent History/Comorbid Conditions* Social History Smoking and tobacco status: never smoked Alcohol intake: never Pertinent Exam Findings alert, oriented x 3, clear to auscultation bilaterally and regular rate & rhythm Recommendations Surgery/Procedure today Coding Level of Care Code Acute Code for Chg Fwd Diagnoses
[2023-01-04 06:46] VITALS: BP 157/90; PULSE 83; RESP 20; TEMP 36.4; O2SAT 97; BMI 57.9
--- NOTE | 2023-01-04 07:02 | ANES.PREANE2 ---
Pre-Anesthetic Assessment Height/Weight: Height 1.7 m Weight 167.829 kg Temp Pulse Resp BP Pulse Ox O2 Del Method 97.6 F 83 20 H 157/90 97 Room Air 01/04/23 06:46 01/04/23 06:46 01/04/23 06:46 01/04/23 06:46 01/04/23 06:46 01/04/23 06:46 Preop Diagnosis: Screening colon cancer Operation Date: 01/04/23 07:20 Proposed Procedures p Colonoscopy 65902,Z12.11(Not Applicable) - Hector Kim MD Familial anesthetic complications: none Was Beta Kane taken within 24 hours: Yes Was Clonidine taken within 24 hours: N/A Last intake: Intake Last Liquid Date 01/03/23 Last Liquid Time 21:00 Last Solid Date 01/02/23 Last Solid Time 21:00 Last Intake: 21:00 Social No alcohol and No tobacco Exam alert, oriented x 3, clear to auscultation bilaterally and regular rate & rhythm Airway Submandibular: within normal limits Cervical ROM: within normal limits Mallampati: Class III Dentition: full Pulmonary Asthma, Chronic Obstructive Pulmonary Disease, Exertional Dyspnea, Sleep Apnea and Shortness of Breath O2 2-4L PRN CV/HEM Atrial Fibrillation and Hypertension None reported Hepatic None reported GI None reported Metabolic Diabetes Mellitus and Thyroid Disease AVG 120's Musc/skel Lower Back Pain and Osteoarthritis/DJD Neuropsych Anxiety and Depression Anesthetic Plan ASA status: 3 Anesthesia: MAC Risk of > 500 ml blood loss (7ml/kg in children): No Medications/Allergies Home Medications Medication Instructions Recorded Confirmed Last Taken Type albuterol sulfate 2.5 mg/3 mL 1.25 mg inhalation ONCE PRN 11/13/22 01/04/23 12/05/22 History (0.083 %) solution for nebulization Wheezing alprazolam 0.5 mg tablet 0.5 mg PO BID PRN Anxiety 11/13/22 01/02/23 12/26/22 History bumetanide 0.5 mg tablet 0.5 mg PO DAILY 11/13/22 01/02/23 01/03/23 History cyclobenzaprine 5 mg tablet 5 mg PO PRN PRN Pain 11/13/22 01/02/23 1 Week Ago History ~12/26/22 diazepam 10 mg tablet 5 mg PO BID PRN Anxiety 11/13/22 01/02/23 01/03/23 History diltiazem HCl 360 mg capsule,24 360 mg PO DAILY 11/13/22 01/02/23 01/04/23 History hr,extended release ergocalciferol (vitamin D2) 1,250 1,250 mcg PO .QOW 11/13/22 01/04/23 12/30/22 History mcg (50,000 unit) capsule fluticasone propionate 50 2 spray intranasal BID PRN Wheezing 11/13/22 01/02/23 01/01/23 History mcg/actuation nasal spray,suspension gabapentin 100 mg capsule 100 mg PO TID PRN Pain 11/13/22 01/04/23 12/30/22 History glipizide 2.5 mg tablet, extended 2.5 mg PO DAILY 11/13/22 01/04/23 01/02/23 History release 24 hr levothyroxine 75 mcg tablet 75 mcg PO DAILY 11/13/22 01/02/23 01/03/23 History losartan 25 mg tablet 25 mg PO DAILY 11/13/22 01/02/23 01/04/23 History metoprolol tartrate 50 mg tablet 50 mg PO BID 11/13/22 01/02/23 01/04/23 History montelukast 10 mg tablet 10 mg PO DAILY 11/13/22 01/02/23 01/01/23 History ondansetron 4 mg disintegrating 4 mg PO Q6H PRN nausea and vomiting 11/13/22 01/04/23 01/04/23 History tablet prednisone 10 mg tablet 40 mg PO DAILY 11/13/22 01/02/23 01/02/23 History rivaroxaban 20 mg tablet (Xarelto) 20 mg PO DAILY 11/13/22 01/02/23 01/01/23 History rosuvastatin 5 mg tablet 5 mg PO DAILY 11/13/22 01/02/23 12/28/22 History spironolactone 25 mg tablet 25 mg PO DAILY 11/13/22 01/02/23 01/03/23 History tramadol 50 mg tablet 1 - 2 mg PO TID PRN pain 11/13/22 01/04/23 01/02/23 History Diabetic shoes with 3 sets of #1 ea 11/28/22 12/05/22 Unknown Rx insoles cetirizine 10 mg tablet (Zyrtec) 10 mg PO DAILY 12/05/22 01/02/23 01/03/23 History budesonide-formoterol HFA 160 2 puff inhalation BID PRN 01/02/23 01/02/23 01/03/23 History mcg-4.5 mcg/actuation aerosol Shortness Of Breath inhaler (Symbicort) albuterol sulfate 90 mcg/actuation 2 puff inhalation QID PRN 01/04/23 01/04/23 01/04/23 History aerosol inhaler (Ventolin HFA) Shortness Of Breath budesonide 160 mcg-glycopyr 9 2 inh inhalation BID 01/04/23 01/04/23 01/04/23 History mcg-formot 4.8 mcg/actuation HFA inhaler (Breztri Aerosphere) Allergies Allergy/AdvReac Type Severity Reaction Status Date / Time acetaminophen [From Tylenol] Allergy Unknown Verified 11/28/22 11:13 cephalexin [From Keflex] Allergy Unknown Verified 11/28/22 11:13 codeine Allergy Unknown Verified 11/28/22 11:13 [facility] Anesthesia Social History Smoking and tobacco status: never smoked Alcohol intake: never Data Anesthesia Cardiac Studies: No Data to Display
[2023-01-04] MEDS: sodium chloride 0.9% 1,000 ML 30 ML IV (07:03)
[2023-01-04 07:06] LABS: Glucose Point of Care 141 mg/dL (70-110)
[2023-01-04 08:09] VITALS: BP 147/88; PULSE 79; RESP 16; TEMP 36.4; O2SAT 97
--- NOTE | 2023-01-04 08:15 | ANE.PACU2 ---
Inpatient post-anesthesia follow up: Airway intact: Yes Vital signs: Temperature 97.6 F Pulse Rate 75 Respiratory Rate 18 Blood Pressure 132/74 Pulse Oximetry 100 Oxygen Delivery Me thod Room Air Oxygen Flow Rate Fraction of Inspir ed Oxygen Hydration adequate: Yes Nausea and vomiting: No Pain level: 1 Mental status: Baseline
[2023-01-04 08:21] VITALS: BP 132/74; PULSE 75; RESP 18; O2SAT 100
== END 2023-01-04 08:46 | disposition home or self-care (01) ==
PROVIDERS: PCP Family Medicine; Visit Provider Surgery
PROC: 0DJD8ZZ Inspection of Lower Intestinal Tract, Via Natural or Artificial Opening Endoscopic (ICD-10-PCS; CPT 45378; principal; 2023-01-04 07:20)
DX: Z12.11 Encounter for screening for malignant neoplasm of colon (principal); Z86.010 Personal history of colon polyps; K63.5 Polyp of colon; J44.9 Chronic obstructive pulmonary disease, unspecified; G47.30 Sleep apnea, unspecified; I48.91 Unspecified atrial fibrillation; I10 Essential (primary) hypertension; E11.9 Type 2 diabetes mellitus without complications
CPT/HCPCS: 36416; 45380; 82962; 88305; J2704; J7030

== ENCOUNTER → 2023-01-19 11:05 | Outpatient (BNVA) | payer MEDICARE, OTHER, SELFPAY | PROVIDERS: PCP Family Medicine; Visit Provider Surgery | DX: Z09 Encounter for follow-up examination after completed treatment for conditions other than malignant neoplasm (principal) | CPT/HCPCS: 99212 ==

== ENCOUNTER → 2023-02-28 12:56 | Outpatient (BNVA) | payer MEDICARE, OTHER, SELFPAY | PROVIDERS: PCP Family Medicine; Visit Provider Podiatrist Foot & Ankle Surgery | DX: L60.3 Nail dystrophy (principal); E11.42 Type 2 diabetes mellitus with diabetic polyneuropathy | CPT/HCPCS: 99213 ==

== ENCOUNTER → 2023-05-03 10:56 | Outpatient (BNVA) | payer MEDICARE, OTHER, SELFPAY | PROVIDERS: PCP Family Medicine; Visit Provider Podiatrist Foot & Ankle Surgery | DX: L60.3 Nail dystrophy (principal); E11.42 Type 2 diabetes mellitus with diabetic polyneuropathy | CPT/HCPCS: 11750 ==

== ENCOUNTER → 2023-05-24 10:26 | Outpatient (BNVA) | payer MEDICARE, OTHER, SELFPAY | PROVIDERS: PCP Family Medicine; Visit Provider Podiatrist Foot & Ankle Surgery | DX: Z98.890 Other specified postprocedural states (principal); L60.0 Ingrowing nail | CPT/HCPCS: 11750; 99213 ==

== ENCOUNTER → 2023-06-11 14:59 | Outpatient (BNVA) | payer MEDICARE, OTHER, SELFPAY | PROVIDERS: PCP Family Medicine; Visit Provider Podiatrist Foot & Ankle Surgery | DX: L60.0 Ingrowing nail (principal) | CPT/HCPCS: 99213 ==